=== PATIENT | male | born 2000 | race Caucasian/White ===

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

== ENCOUNTER 2023-08-26 12:37 | Outpatient (CLI) | payer OTHER | END 2023-08-26 12:38 | disposition home or self-care (01) | LOC: SCSRAD 12:37 | PROVIDERS: ATTEND Nurse Practitioner Family | DX: S00.12XA Contusion of left eyelid and periocular area, initial encounter (principal); M25.511 Pain in right shoulder; R07.81 Pleurodynia | CPT/HCPCS: 70150 ==